=== PATIENT | male | born 1955 | race Caucasian/White ===

== ENCOUNTER 2021-08-26 02:17 | Day surgery (SDC) | payer MEDICARE, SELFPAY ==
[2021-08-17 13:27] VITALS: BMI 31.4
--- NOTE | 2021-08-26 06:55 | P.PNAN_ITS ---
Anes - Initial Pre Proc Eval Procedure: Operation Date: 08/26/21 08:00 Proposed Procedures p Screening Colonoscopy - Rashaad Lu MD Date/Time: 08/26/21 06:55 Surgeon: Rashaad Lu MD Pre Op Diagnosis: neoplasm screening Patient Data Age: 66 Gender: M Height: 1.91 m Weight: 114 kg Allergies Allergy/AdvReac Type Severity Reaction Status Date / Time No Known Allergies Allergy Verified 08/26/21 06:56 Home Medications Medication Instructions Recorded Confirmed Type No Home Medications 08/17/21 08/26/21 History Patient hx anesthesia problems: none Family hx anesthesia problems: none Results Review: All pre-operative results and documents have been reviewed as part of the pre-operative evaluation. COUNTS INCLUDE 234 BEDS AT THE [facility] Social History Social History Smoking status: Never smoker Alcohol intake: current Drinks per week: 2 Living arrangements: alone Anes - Eval Final PreProcedure Day of Procedure 08/26/21 06:55 Patient weight: obese Heart: regular rate and rhythm Lungs: clear to auscultation and normal air movement Airway: Mallampati scale class II Neurological: alert and oriented Last oral intake: >/= 8 hours ASA classification: II Emergent: no Anesthetic plan: proceed Anesthesia type and monitoring: general GIVS and standard monitoring Results Review: All pre-operative results and documents have been reviewed as part of the pre-operative evaluation. Informed Consent: The patient's anesthetic plan and its attendant risks and benefits were discussed with the patient/family/POA. Questions were solicited and answers provided to the satisfaction of the patient/family/POA.
[2021-08-26 06:57] VITALS: BP 153/95; PULSE 69; RESP 16; TEMP 36; O2SAT 98; BMI 30.2
[2021-08-26] MEDS: LACTATED RINGERS 1,000 ML 150 ML IV CONT (07:12)
--- NOTE | 2021-08-26 07:53 | WPDGICN ---
Assessment and Plan Assessment and plan (1) Encounter for screening colonoscopy: Code(s): Z12.11 - Encounter for screening for malignant neoplasm of colon Status: Acute Assessment and Plan: Patient presents today for screening colonoscopy. Appears to be at average risk for colon polyps. Further recommendations will be given after endoscopy. GI Consult Note Consult date/time: 08/26/21 07:53 HPI: Rashaad Kerns is a 66 year old male Presents for screening colonoscopy. Patient's current weight appetite bowel movements are normal. he denies abdominal pain. He has had no bleeding. Family history is noncontributory. Past medical history is significant for degenerative arthritis. Review of Systems Review of Systems: All systems reviewed & are unremarkable except as noted in HPI and below PMFSH Social History Social History Smoking status: Never smoker Alcohol intake: current Drinks per week: 2 Living arrangements: alone Meds Home Medications and Allergies Home Medications Medication Instructions Recorded Confirmed Type No Home Medications 08/17/21 08/26/21 History Allergies Allergy/AdvReac Type Severity Reaction Status Date / Time No Known Allergies Allergy Verified 08/26/21 06:56 Vital Signs Vital Signs - 24 hr 08/26/21 06:57 Temperature 96.8 F L Pulse Rate 69 Respiratory Rate 16 Blood Pressure 153/95 H Pulse Oximetry 98 Exam Narrative: Physical exam reveals patient to be alert. Vital signs stable. HEENT exam is unremarkable. Patient is anicteric. Lungs are clear to auscultation and percussion. Heart is without murmur or extra sounds. Abdominal exam bowel sounds are present soft nontender with no organomegaly. Digital external rectal exam is normal.
[2021-08-26 08:16] VITALS: BP 130/74; PULSE 52; RESP 12; O2SAT 95
[2021-08-26 08:26] VITALS: BP 130/74; PULSE 51; RESP 11; O2SAT 96
--- NOTE | 2021-08-26 08:27 | SUR.PHASEII ---
Per Dr Lu, followup colonoscopy 10 years instead of 5 years as identified on discharge instructions.
[2021-08-26 08:36] VITALS: BP 144/79; PULSE 56; RESP 18; O2SAT 95
== END 2021-08-26 08:50 | disposition home or self-care (01) ==
PROVIDERS: PCP Family Medicine; Visit Provider Internal Medicine Gastroenterology
PROC: 0DJD8ZZ Inspection of Lower Intestinal Tract, Via Natural or Artificial Opening Endoscopic (ICD-10-PCS; CPT 45378; principal; 2021-08-26 08:00)
DX: Z12.11 Encounter for screening for malignant neoplasm of colon (principal); K64.8 Other hemorrhoids; K57.30 Diverticulosis of large intestine without perforation or abscess without bleeding; E66.9 Obesity, unspecified; Z68.30 Body mass index [BMI] 30.0-30.9, adult
CPT/HCPCS: G0121; J2704; J7120